=== PATIENT | male | born 1980 | race Hispanic/Latino ===

== ENCOUNTER 2020-07-05 10:19 | Emergency (ER) | payer SELFPAY ==
[2020-07-05] MEDS ORDERED: ONDANSETRON 4 MG/2 ML VIAL ONE ×2 (10:33→11:31)
[2020-07-05] MEDS ORDERED: MORPHINE 4 MG/ML SYR ONE (10:33)
[2020-07-05 11:02] LABS: Absolute Lymphocytes (CBC) 0.9 K/uL (0.7-4.9); Basophils % 0.2 % (0-1.3); Hematocrit 39.6 % (39.6-49.0); Lymphocytes % 12.4 % (15.3-44.8); MPV 8.3 fL (7.6-11.3); RBC Red Blood Cell Count 4.39 M/uL (4.33-5.43)
--- NOTE | 2020-07-05 11:12 | RAD REPORT ---
EXAM DESCRIPTION: CT - Head C Spine Cap Wo Con - 07/05/2020 11:00 am CLINICAL HISTORY: 12' fall;Pain COMPARISON: No comparisons TECHNIQUE: Axial [address] head images were obtained. Axial [address] cervical spine images were obtain ed with sagittal and coronal reconstruction images reviewed. Axial 5 mm images of the chest, abdomen and pelvis were obtained. All CT scans are performed using dose optimization technique as appropriate and may include automated exposure control or mA/KV adjustment according to patient size. FINDINGS: No intracranial hemorrhage, mass or edema. No midline shift or abnormal fluid collection. Mastoid air cells and paranasal sinuses are clear. No skull fracture. Cervical bodies are normal in height and alignment. No fracture or acute bone finding.No disk space n arrowing.No prevertebral soft tissue thickening or paraspinal mass.Central canal detail is inherently limited on CT imaging. CT chest shows no pneumothorax, pulmonary contusion or pleural fluid collection. No mediastinal hem atoma and the aorta and pulmonary arteries are unremarkable. No chest will mass or abnormal axillary finding. No displaced rib fracture or other significant bony finding. CT abdomen and pelvis show no injury to solid abdominal viscera. Gallbladder and biliary tree are unr emarkable. No bowel injury or significant finding. No free air, free fluid or abnormal stranding. No hernia, mass or bulky lymphadenopathy. No urinary bladder abnormality. No significant bony finding. IMPRESSION: No significant CT Head finding. No significant CT cervical spine finding. No significant CT Chest finding. No significant CT Abdomen and Pelvis finding.
[2020-07-05 11:19] LABS: Albumin 3.9 g/dL (3.4-5.0); Bilirubin Direct 0.2 mg/dL (0-0.2); Bilirubin Total 0.5 mg/dL (0.2-1.0); Potassium 3.9 mmol/L (3.5-5.1); Protein, Total 7.1 g/dL (6.4-8.2)
--- NOTE | 2020-07-05 11:27 | ER ---
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 Obvious hb deformity to left lower leg, abrassions ot bridge of nose. No other injuries noted. Negative LOC. C spine cleared on scene, splint to left lower leg in place. Ketamine 37mg and Zofran 2 mg administered to 20g [employer]. Care prior to arrival: Splint applied. Splint applied. Medication(s) given: Ketamine, Zofran. Mechanism of Injury: Fall approximately 12 feet. 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 10:13 Acuity: SOHAN 2 hb 10:13 Method Of Arrival: EMS: [facility] hb 10:29 Coronavirus screen: At this time, the client does not indicate any symptoms associated sv with coronavirus-19. Ebola Screen: No symptoms or risks identified at this time. Initial Sepsis Screen: Does the patient meet any 2 criteria? No. Patient's initial sepsis screen is negative. Does the patient have a suspected source of infection? No. Patient's initial sepsis screen is negative. Risk Assessment: Do you want to hurt yourself or someone else? Patient reports no desire to harm self or others. Onset of symptoms was July 05, 2020. Trauma Activation: Alert Physician: ED Physician; Name: ; Notified At: ; Arrived At: Physician: General Surgeon; Name: ; Notified At: ; Arrived At: Physician: Radiology; Name: ; Notified At: ; Arrived At: Physician: Respiratory; Name: ; Notified At: ; Arrived At: Physician: Lab; Name: ; Notified At: ; Arrived At: Historical: - Allergies: 10: No Known Allergies; sv - Home Meds: : Lisinopril Oral [Active]; Metformin Oral [Active]; sv - PMHx: : Pre diabetic; Hypertension; sv - Immunization history: Last tetanus immunization: < 10 years ago. - Social history:: Smoking status: Patient denies any tobacco usage or history of. Screenin:26 Abuse screen: Denies threats or abuse. Denies injuries from another. Nutritional sv screening: No deficits noted. Tuberculosis screening: No symptoms or risk factors identified. Fall Risk No fall in past 12 months (0 pts). Secondary diagnosis (15 points) impaired mobility, IV access (20 points). Ambulatory Aid- None/Bed Rest/Nurse Assist (0 pts). Gait- Impaired (20 pts.). Mental Status- Oriented to own ability (0 pts). Total Peres Fall Scale indicates High Risk Score (45 or more points). Fall prevention measures have been instituted. Side Rails Up X 2 Placed Close to Nursing Station Frequent Obs/Assessments Occuring As available patient and family educated on Fall Prevention Program and Strategies. Primary Survey: 10:13 NO uncontrolled hemorrhage observed. A: The patient is alert. Airway: patent. hb Breathing/Chest: Respiratory pattern: regular, Respiratory effort: spontaneous, unlabored, Breath sounds: clear, bilaterally. Chest inspection: symmetrical rise and fall of the chest. Circulation: Pulses: palpable right dorsalis pedis artery and left dorsalis pedis artery. Skin color: pink, Skin temperature: moist, cool. Disability Alert. Exposure/Environment: All clothing and personal items were removed. Forensic evidence collection is not deemed to be indicated at this time. Items placed in patient belonging bag. There is no evidence of uncontrolled external bleeding. Obvious injury(ies) are noted at this time: deformity to left lower leg A warming method has been applied: A warm blanket has been provided to the patient. 11:12 Reassessment Airway Airway Patent Oxygen No O2 Oral cavity Clear Trachea Midline sv Breathing/Chest Respiratory pattern Regular Respiratory effort Spontaneous Unlabored Chest inspection Symmetrical Circulation Heart tones Present Pulses Palpable Color [place] Temperature Warm Dry Disability Alert. Secondary Survey: 10:13 HEENT: Nose: abrasions to bridge of nose. Gastrointestinal: No deficits noted. : No hb deficits noted. No signs and/or symptoms were reported regarding the genitourinary system. Musculoskeletal: left lower leg. Assessment: 10:15 General: Appears in no apparent distress. uncomfortable, Behavior is calm, cooperative. hb Pain: Pain currently is 8 out of 10 on a pain scale. Neuro: Level of Consciousness is awake, alert, obeys commands, Oriented to person, place, time, situation. EENT: No deficits noted. No signs and/or symptoms were reported regarding the EENT system. Cardiovascular: Heart tones S1 S2 present Capillary refill < 3 seconds Patient's skin is warm and dry. Respiratory: Airway is patent Respiratory effort is even, unlabored, Respiratory pattern is regular, symmetrical, Breath sounds are clear bilaterally. GI: No deficits noted. No signs and/or symptoms were reported involving the gastrointestinal system. : No deficits noted. No signs and/or symptoms were reported regarding the genitourinary system. Derm: Skin is healthy with good turgor, Skin is moist, Skin is normal. Musculoskeletal: left lower leg. 12:19 Reassessment: Patient appears in no apparent distress at this time. Patient and/or sv family updated on plan of care and expected duration. Pain level reassessed. Patient is alert, oriented x 3, equal unlabored respirations, skin warm/dry/pink. Patient denies pain at this time. Patient states feeling better. Patient states symptoms have improved. Cardiovascular: Capillary refill < 3 seconds is brisk in left toes Patient's skin is warm and dry. Pulses are palpable in right dorsalis pedis artery and left dorsalis pedis artery Rhythm is sinus rhythm. 12:55 Reassessment: Patient appears in no apparent distress at this time. Patient and/or sv family updated on plan of care and expected duration. Pain level reassessed. Patient is alert, oriented x 3, equal unlabored respirations, skin warm/dry/pink. Patient states feeling better. Patient states symptoms have improved. Vital Signs: 10:13 BP 149 / 94; Pulse 98; Resp 16; Temp 97.7; Pulse Ox 100% ; Weight 81.65 kg; Height 5 hb ft. 7 in. (170.18 cm); Pain 8/10; 11:12 BP 128 / 70; Pulse 78; Resp 16; Temp 98.8; Pulse Ox 100% ; sv 11:30 BP 121 / 87; Pulse 89; Resp 16; Pulse Ox 100% on R/A; sv 11:52 BP 126 / 102; Pulse 87; Resp 13; Pulse Ox 100% on 2 lpm NC; sv 11:56 BP 116 / 85; Pulse 85; Resp 14; Pulse Ox 100% on 2 lpm NC; sv 10:13 Body Mass Index 28.19 (81.65 kg, 170.18 cm) hb Kevin Coma Score: 10:13 Eye Response: spontaneous(4). Verbal Response: oriented(5). Motor Response: obeys hb commands(6). Total: 15. 11:12 Eye Response: spontaneous(4). Verbal Response: oriented(5). Motor Response: obeys sv commands(6). Total: 15. 11:56 Eye Response: spontaneous(4). Verbal Response: oriented(5). Motor Response: obeys sv commands(6). Total: 15. Trauma Score (Adult): 10:13 Eye Response: spontaneous(1); Verbal Response: oriented(1); Motor Response: obeys hb commands(2); Systolic BP: > 89 mm Hg(4); Respiratory Rate: 10 to 29 per min(4); [place] Score: 15; Trauma Score: 12 11:12 Eye Response: spontaneous(1); Verbal Response: oriented(1); Motor Response: obeys sv commands(2); Systolic BP: > 89 mm Hg(4); Respiratory Rate: 10 to 29 per min(4); Kevin Score: 15; Trauma Score: 12 11:56 Eye Response: spontaneous(1); Verbal Response: oriented(1); Motor Response: obeys sv commands(2); Systolic BP: > 89 mm Hg(4); Respiratory Rate: 10 to 29 per min(4); Kevin Score: 15; Trauma Score: 12 ED Course: 10:13 Patient maintains SpO2 saturation greater than 95% on room air. hb 10:20 Patient arrived in ED. bd 10:20 Maintain EMS IV. Dressing intact. Good blood return noted. Site clean \T\ dry. Gauge \T\ sv site: 20G L AC. 10:21 Jeffry Morillo MD is Attending Physician. kdr 10:24 Arm band placed on. sv 10:25 Triage completed. hb 10:26 Elsy Whitehead RN is Primary Nurse. sv 10:26 Patient has correct armband on for positive identification. Placed in gown. Bed in low sv position. Call light in reach. Side rails up X2. Pulse ox on. NIBP on. 10:29 Thermoregulation: warm blanket given to patient. sv 10:29 X-ray(s) taken. sv 10:45 Tib Fib Left XRAY In Process Unspecified. EDMS 10:45 EKG done, by ED staff, reviewed by Jeffry Morillo MD. dh3 10:48 Initial lab(s) drawn, by me, sent to lab. T\T\S collected, blood band applied to patient. dh3 11:00 CT Traumagram (Head C Spine CAP wo con) In Process Unspecified. EDMS 11:23 Consent for conscious sedation explained by staff, explained by physician, signed by sv patient. 11:52 Assist provider with reduction of left ankle using traction, Set up for procedure. sv Performed by Jeffry Morillo MD Patient tolerated well. 11:55 attempted transfer to [facility]. bd 12:00 Orthoglass splint: Posterior long leg splint applied on left leg. stirrup splint dh3 applied on left leg. capillary refill <3 seconds, assisted by Dr. Morillo. 12:18 Patient transferred, IV remains in place. intact. sv 12:24 pt accepted in transfer to [facility], admin approval given by esan velasco. bd accepting dr is dr andrade. Administered Medications: 10:24 Drug: Zofran (Ondansetron) 4 mg Route: IVP; Site: left antecubital; sv 11:00 Follow up: Response: No adverse reaction sv 10:26 Drug: morphine 4 mg {Note: rass3.} Route: IVP; Site: left antecubital; sv 11:00 Follow up: Response: No adverse reaction; No change in condition; Pain is unchanged, sv physician notified; RASS: Agitated (+2) 11:47 Drug: fentaNYL (PF) 50 mcg Route: IVP; Site: left antecubital; sv 12:12 Follow up: Response: No adverse reaction; Marked relief of symptoms; Pain is decreased; sv RASS: Drowsy (-1) 11:47 Drug: Zofran (Ondansetron) 4 mg Route: IVP; Site: left antecubital; sv 12:12 Follow up: Response: No adverse reaction sv 11:48 Drug: Propofol 100 mg {Note: given by Dr Morillo.} Route: IVP; Site: left antecubital; sv 12:12 Follow up: Response: No adverse reaction sv Intake: 10:13 PO: 0ml; Total: 0ml. hb 11:12 PO: 0ml; Total: 0ml. sv 11:56 PO: 0ml; Total: 0ml. sv Output: 11:12 Urine: 0ml; Total: 0ml. sv 11:56 Urine: 0ml; Total: 0ml. sv Outcome: 11:27 ER care complete, transfer ordered by . kdr 12:18 Transferred by ground EMS to [facility], Transfer form completed. X-rays sent sv w/ patient. Note: Report called to Clare MUNSON at [facility]. 12:18 Condition: stable 12:18 Instructed on the need for transfer. 12:59 Patient left the ED. iw 12:59 Patient's length of stay in the Emergency Department was greater than 2 hours. d/t sv transferPatient's length of stay extended due to Signatures: Dispatcher [employer] EDMS Danielle Alvarez Stephanie, RN RN sv Jeffry Morillo MD MD kdr Williams, Irene, RN RN Luann Bejarano RN RN Nicole Ruiz [facility] Corrections: (The following items were deleted from the chart) 12:12 11:48 Propofol 100 mg IVP in left antecubital sv sv
--- NOTE | 2020-07-05 11:28 | EDPHYS ---
Physician Documentation [facility] Name: Adolph Richardson Age: 40 yrs Sex: Male : 1980 Arrival Date: 07/05/2020 Time: 10:20 Bed 5 Private MD: ED Physician Jeffry Morillo HPI: 07/05 16:59 This 40 yrs old Male presents to ER via EMS with complaints of Fall Injury. kdr 16:59 Details of fall: The patient fell from a height, out of a building, off a roof, kdr approximately 10 feet. Onset: The symptoms/episode began/occurred suddenly, just prior to arrival. Associated injuries: The patient sustained left lateral ankle, left Achilles, left medial ankle and anterior aspect of left ankle, decreased range of motion, deformity, obvious fracture, painful injury, swelling. Severity of symptoms: At their worst the symptoms were moderate, severe, just prior to arrival, in the emergency department the symptoms are unchanged. The patient has not experienced similar symptoms in the past. The patient has not recently seen a physician. The patient fell directly onto concrete - he denies any other injury. Historical: - Allergies: 10:29 No Known Allergies; sv - Home Meds: 10:29 Lisinopril Oral [Active]; Metformin Oral [Active]; sv - PMHx: 10:29 Pre diabetic; Hypertension; sv - Immunization history: Last tetanus immunization: < 10 years ago. - Social history:: Smoking status: Patient denies any tobacco usage or history of. ROS: 16:59 Constitutional: Negative for fever, chills, and weight loss, Eyes: Negative for injury, kdr pain, redness, and discharge, ENT: Negative for injury, pain, and discharge, Neck: Negative for injury, pain, and swelling, Cardiovascular: Negative for chest pain, palpitations, and edema, Respiratory: Negative for shortness of breath, cough, wheezing, and pleuritic chest pain, Abdomen/GI: Negative for abdominal pain, nausea, vomiting, diarrhea, and constipation, Back: Negative for injury and pain, : Negative for injury, bleeding, discharge, and swelling, Skin: Negative for injury, rash, and discoloration, Neuro: Negative for headache, weakness, numbness, tingling, and seizure activity. Psych: Negative for depression, anxiety, suicide ideation, homicidal ideation, and hallucinations, Allergy/Immunology: Negative for hives, rash, and allergies, Endocrine: Negative for neck swelling, polydipsia, polyuria, polyphagia, and marked weight changes, Hematologic/Lymphatic: Negative for swollen nodes, abnormal bleeding, and unusual bruising. 16:59 MS/extremity: Positive for injury or acute deformity, decreased range of motion, erythema, pain, tenderness, Negative for paresthesias. Exam: 16:59 Constitutional: This is a well developed, well nourished patient who is awake, alert, kdr and in no acute distress. Head/Face: Normocephalic, atraumatic. Eyes: Pupils equal round and reactive to light, extra-ocular motions intact. Lids and lashes normal. Conjunctiva and sclera are non-icteric and not injected. Cornea within normal limits. Periorbital areas with no swelling, redness, or edema. Neck: Trachea midline, no thyromegaly or masses palpated, and no cervical lymphadenopathy. Supple, full range of motion without nuchal rigidity, or vertebral point tenderness. No Meningismus. Chest/axilla: Normal chest wall appearance and motion. Nontender with no deformity. No lesions are appreciated. Cardiovascular: Regular rate and rhythm with a normal S1 and S2. No gallops, murmurs, or rubs. Normal PMI, no JVD. No pulse deficits. Respiratory: Lungs have equal breath sounds bilaterally, clear to auscultation and percussion. No rales, rhonchi or wheezes noted. No increased work of breathing, no retractions or nasal flaring. Abdomen/GI: Soft, non-tender, with normal bowel sounds. No distension or tympany. No guarding or rebound. No evidence of tenderness throughout. Back: No spinal tenderness. No costovertebral tenderness. Full range of motion. Skin: Warm, dry with normal turgor. Normal color with no rashes, no lesions, and no evidence of cellulitis. Neuro: Awake and alert, GCS 15, oriented to person, place, time, and situation. Cranial nerves II-XII grossly intact. Motor strength 5/5 in all extremities. Sensory grossly intact. Cerebellar exam normal. Normal gait. Psych: Awake, alert, with orientation to person, place and time. Behavior, mood, and affect are within normal limits. 16:59 Musculoskeletal/extremity: Extremities: grossly normal except: noted in the left lateral ankle, left Achilles, left medial ankle and anterior aspect of left ankle: decreased ROM, deformity, pain, swelling, tenderness. 19:32 ECG was reviewed by the Attending Physician. kdr Vital Signs: 10:13 BP 149 / 94; Pulse 98; Resp 16; Temp 97.7; Pulse Ox 100% ; Weight 81.65 kg; Height 5 hb ft. 7 in. (170.18 cm); Pain 8/10; 11:12 BP 128 / 70; Pulse 78; Resp 16; Temp 98.8; Pulse Ox 100% ; sv 11:30 BP 121 / 87; Pulse 89; Resp 16; Pulse Ox 100% on R/A; sv 11:52 BP 126 / 102; Pulse 87; Resp 13; Pulse Ox 100% on 2 lpm NC; sv 11:56 BP 116 / 85; Pulse 85; Resp 14; Pulse Ox 100% on 2 lpm NC; sv 10:13 Body Mass Index 28.19 (81.65 kg, 170.18 cm) hb Kevin Coma Score: 10:13 Eye Response: spontaneous(4). Verbal Response: oriented(5). Motor Response: obeys hb commands(6). Total: 15. 11:12 Eye Response: spontaneous(4). Verbal Response: oriented(5). Motor Response: obeys sv commands(6). Total: 15. 11:56 Eye Response: spontaneous(4). Verbal Response: oriented(5). Motor Response: obeys sv commands(6). Total: 15. Trauma Score (Adult): 10:13 Eye Response: spontaneous(1); Verbal Response: oriented(1); Motor Response: obeys hb commands(2); Systolic BP: > 89 mm Hg(4); Respiratory Rate: 10 to 29 per min(4); [place] Score: 15; Trauma Score: 12 11:12 Eye Response: spontaneous(1); Verbal Response: oriented(1); Motor Response: obeys sv commands(2); Systolic BP: > 89 mm Hg(4); Respiratory Rate: 10 to 29 per min(4); [place] Score: 15; Trauma Score: 12 11:56 Eye Response: spontaneous(1); Verbal Response: oriented(1); Motor Response: obeys sv commands(2); Systolic BP: > 89 mm Hg(4); Respiratory Rate: 10 to 29 per min(4); [place] Score: 15; Trauma Score: 12 Procedures: 16:59 Reduction: of the left ankle, using traction, manipulation, Immobilized with Long leg kdr stirrup and posterior left leg. Patient tolerated well. Moderate sedation: Pre-procedure assessment: the patient has been NPO 5 hour(s) prior to arrival, ASA physical classification: I - healthy, no underlying organic disease, Airway assessment: able to hyperextend neck, Mallampati classification of tongue size: I - faucial pillars, soft palate, and uvula can be fully visualized, Monitoring during procedure: panel monitor, Medications employed: Brevital, 100 mg(s), Fentanyl, 50 mcg(s), Post-procedure assessment: the patient is not sedated, Aguirre sedation score: 1 - patient anxious or agitated or both, Respiratory status: even and unlabored, a reversal agent was not used. MDM: 11:27 Patient medically screened. kdr 16:59 Data reviewed: vital signs, nurses notes, lab test result(s), radiologic studies. kdr Counseling: I had a detailed discussion with the patient and/or guardian regarding: the historical points, exam findings, and any diagnostic results supporting the discharge/admit diagnosis, lab results, radiology results, the need to transfer to another facility. Physician consultation: Luis Enrique Rosen MD regarding consult, patient's condition, after a discussion of the case, a recommendation for transfer for higher level of care is made. 07/05 10:32 Order name: Amylase, Serum [facility] 07/05 10:32 Order name: Basic Metabolic Panel [facility] 07/05 10:32 Order name: CBC with Diff [facility] 07/05 10:32 Order name: ETOH Level [facility] 07/05 10:32 Order name: Hepatic Function [facility] 07/05 10:32 Order name: Lipase [facility] 07/05 10:32 Order name: CT Traumagram (Head C Spine CAP wo con) [facility] 07/05 10:32 Order name: Type And Screen [facility] 07/05 10:32 Order name: Tib Fib Left XRAY [facility] 07/05 10:32 Order name: EKG; Complete Time: 10:33 [facility] 07/05 10:32 Order name: EKG - Nurse/Tech; Complete Time: 10:56 [facility] 07/05 10:32 Order name: IV Saline Lock; Complete Time: 10: kdr 07/05 10:32 Order name: Labs collected and sent; Complete Time: kdr 07/05 10:32 Order name: NPO; Complete Time: kdr 07/05 10:32 Order name: O2 Per Protocol; Complete Time: kdr 07/05 10:32 Order name: O2 Sat Monitoring; Complete Time: kdr EC:32 Rate is 78 beats/min. Rhythm is regular, Normal Sinus Rhythm with No ectopy. QRS [place] kdr is Normal. [place] interval is normal. QRS interval is normal. QT interval is normal. Clinical impression: Normal ECG. Administered Medications: 10:24 Drug: Zofran (Ondansetron) 4 mg Route: IVP; Site: left antecubital; sv 11:00 Follow up: Response: No adverse reaction sv 10:26 Drug: morphine 4 mg {Note: rass3.} Route: IVP; Site: left antecubital; sv 11:00 Follow up: Response: No adverse reaction; No change in condition; Pain is unchanged, sv physician notified; RASS: Agitated (+2) 11:47 Drug: fentaNYL (PF) 50 mcg Route: IVP; Site: left antecubital; sv 12:12 Follow up: Response: No adverse reaction; Marked relief of symptoms; Pain is decreased; sv RASS: Drowsy (-1) 11:47 Drug: Zofran (Ondansetron) 4 mg Route: IVP; Site: left antecubital; sv 12:12 Follow up: Response: No adverse reaction sv 11:48 Drug: Propofol 100 mg {Note: given by Dr Morillo.} Route: IVP; Site: left antecubital; sv 12:12 Follow up: Response: No adverse reaction sv Disposition: 07/05/20 11:[address] [facility]. Diagnosis is Comminuted closed distal left tibi/fib. - Reason for transfer: Higher level of care. - Accepting physician is [facility]. - Condition is Fair. - Problem is new. - Symptoms have improved. Signatures: Dispatcher [employer] EDMS Danielle Alvarez Stephanie, RN RN sv Rittger, Kevin, MD MD kdr Williams, Irene, RN RN Luann Bejarano RN RN Corrections: (The following items were deleted from the chart) 10:45 10:33 Ankle Left 3 View+RAD.RAD.BRZ ordered. EDMS EDMS 12:59 11:27 07/05/2020 11:[address] [facility]. Diagnosis is iw Comminuted closed distal left tibi/fib. Reason for transfer: Higher level of care. Accepting physician is [facility]. Condition is Fair. Problem is new. Symptoms have improved. kdr
[2020-07-05] MEDS ORDERED: FENTANYL CITR 100 MCG/2 ML ONE (11:30)
[2020-07-05] MEDS ORDERED: propofoL 200 MG/20 ML VIAL IV ONE (11:31)
--- NOTE | 2020-07-05 11:55 | RAD REPORT ---
EXAM DESCRIPTION: RAD - Tib Fib Left - 07/05/2020 10:45 am CLINICAL HISTORY: Leg pain, fall from 12 feet COMPARISON: None. FINDINGS: Comminuted distal tibia and fibula fractures are present. Transverse fracture of the dista l shaft of the fibula is seen with small fracture fragments at the fracture plane. There is 1 full sh aft width lateral displacement of the distal fibula fracture fragment. There is a 30 degree lateral a nd 30 degree posterior angulation deformity. The distal fibula has been fractured into numerous fragm ents. This involves the tibial plafond as well. There is similar lateral deformity. The large posteri or malleolus fracture fragment has a 30 degree posterior angulation angulation deformity. Soft tissue swelling is present. No foreign body seen. Proximal left leg shows no significant finding. IMPRESSION: Comminuted distal tibia and fibula fracture deformity as detailed.
[2020-07-05 13:45] VITALS: TEMP 98.8; O2SAT 100
[2020-07-05 13:49] VITALS: BP 116/85
--- NOTE | 2020-07-06 08:42 | EKG ---
Test Date: 2020-07-05 Test Time: 10:46:14 [employer]: LEONIDES MEASUREMENT RESULTS: Intervals: Rate: 78 KS: 152 QRSD: 90 QT: 366 QTc: 417 [place]: P: 38 KS: 152 QRS: 53 T: 49 INTERPRETIVE STATEMENTS: Normal sinus rhythm Normal ECG No previous ECG available for comparison Electronically Signed On 07-06-20 08:38:36 CDT by Matthew Hill
== END 2020-07-05 12:59 | disposition short-term general hospital (02) ==
LOC: ER 10:19
PROC: 0QSKXZZ Reposition Left Fibula, External Approach (ICD-10-PCS; principal; 2020-07-05)
PROC: 0QSHXZZ Reposition Left Tibia, External Approach (ICD-10-PCS; 2020-07-05)
DX: S82.252A Displaced comminuted fracture of shaft of left tibia, initial encounter for closed fracture (principal); S82.452A Displaced comminuted fracture of shaft of left fibula, initial encounter for closed fracture; W13.2XXA Fall from, out of or through roof, initial encounter; Y93.9 Activity, unspecified; Y92.89 Other specified places as the place of occurrence of the external cause; I10 Essential (primary) hypertension; R73.03 Prediabetes
CPT/HCPCS: 36415; 70450; 71250; 72125; 80048; 80076; 80320; 82150; 83690; 85025; 86850; 86900; 86901; 93005; 96374; 96375; 99285; G0390; J2405; J2704; J3010